=== PATIENT | male | born 1990 | race Caucasian/White ===

== ENCOUNTER 2024-03-18 08:53 | Emergency (ER) | payer BC ==
[~2024-03-18] VITALS: Ht 177.8 cm; Wt 105.8 kg
[2024-03-18 10:08] LABS: BASOPHILS % (AUTO) 0.2 % (0-1); EOSINOPHILS % (AUTO) 0.3 % (0-6); HEMATOCRIT 47.3 % (42.0-52.0); LYMPHOCYTES # (AUTO) 1.5 X10'3 (1.1-4.8); LYMPHOCYTES % (AUTO) 17.1 % (21-51); MEAN CORPUSCULAR HEMOGLOBIN 29.2 PG (27.0-31.0); MEAN CORPUSCULAR HGB CONC 33.8 g/dL (33.0-36.5); MEAN CORPUSCULAR VOLUME 86.6 FL (78-98); MEAN PLATELET VOLUME 8.6 FL (7.4-10.4); MONOCYTES # (AUTO) 1.3 X10'3 (0-0.9); MONOCYTES % (AUTO) 15.3 % (2-12); NEUTROPHILS # (AUTO) 5.8 X10'3 (1.8-7.7); NEUTROPHILS % (AUTO) 67.1 % (42-75); PLATELET COUNT 208 X10'3 (140-440); RED BLOOD COUNT 5.47 X10'6 (4.70-6.10); RED CELL DISTRIBUTION WIDTH 13.8 % (11.5-14.5); WHITE BLOOD COUNT 8.6 X10'3 (4.5-11.0)
[2024-03-18 10:33] LABS: ALANINE AMINOTRANSFERASE 51 U/L (12-78); ALBUMIN 4.2 G/DL (3.4-5.0); ALBUMIN/GLOBULIN RATIO 0.9 (1.1-1.5); ALKALINE PHOSPHATASE 51 IU/L (46-116); AMYLASE 50 U/L (25-115); ANION GAP 11 (8-16); ASPARTATE AMINO TRANSFERASE 17 U/L (10-37); BILIRUBIN,TOTAL 2.2 MG/DL (0.1-1.0); BLOOD UREA NITROGEN 12 MG/DL (7-18); BUN/CREATININE RATIO 10.5 (10.0-20.0); CALCIUM 8.8 MG/DL (8.5-10.1); CHLORIDE 98 MMOL/L (99-107); CREATININE 1.14 MG/DL (0.60-1.10); GLUCOSE 130 MG/DL (70-104); LIPASE 58 U/L (16-77); POTASSIUM 3.6 MMOL/L (3.5-5.1); SODIUM 136 MMOL/L (135-145); TOTAL PROTEIN 8.9 G/DL (6.4-8.2); eCRCL 94 ML/MIN; eGFR 74 ML/MIN
[2024-03-18 10:39] LABS: PLATELET ESTIMATE NORMAL; STOMATOCYTES FEW; TOTAL CELLS COUNTED 100
[2024-03-18] MEDS ORDERED: iohexol 300mg/ml 100ml inj. ONE (10:42)
[2024-03-18] MEDS: diphenhydrAMINE 50 mg/ml inj IV ONE (12:40)
[2024-03-18] MEDS: morphine 4 MG/ML inj SYRINge IV ONE (12:40)
[2024-03-18 13:03] LABS: BILIRUBIN,URINE NEGATIVE (Neg); CLARITY,URINE CLEAR (Clear); COLOR,URINE YELLOW (Yellow); GLUCOSE, URINE NEGATIVE (Neg); KETONES,URINE NEGATIVE (Neg); LEUKOCYTE ESTERASE ,URINE NEGATIVE (Neg); NITRITES, URINE NEGATIVE (Neg); OCCULT BLOOD,URINE NEGATIVE (Neg); PH,URINE 6.5 (4.8-8.0); PROTEIN,URINE NEGATIVE (Neg); UROBILINOGEN,URINE 0.2 E.U/dL (0.2-1.0)
[2024-03-18 13:08] LABS: UA COLLECTION TYPE CLN CATCH MIDSTREAM
[2024-03-18 13:20] VITALS: BP 130/85; PULSE 82; RESP 14; TEMP 97.6; O2SAT 99
== END 2024-03-18 13:20 | disposition home or self-care (01) ==
LOC: ER 08:54
DX: I88.0 Nonspecific mesenteric lymphadenitis (principal); R10.11 Right upper quadrant pain; R10.31 Right lower quadrant pain; R50.9 Fever, unspecified
CPT/HCPCS: 36415; 74177; 76700; 80053; 81003; 82150; 83690; 85007; 85025; 96374; 96375; 99285; J1200; J2270; Q9967